=== PATIENT | male | born 1970 | race Hispanic/Latino ===

== ENCOUNTER 2019-02-20 10:35 | Observation (INO) | payer OTHER ==
--- NOTE | 2019-02-20 11:02 | RAD ---
EXAM: CHEST ONE VIEW HISTORY: Chest pain COMPARISON: None FINDINGS: The cardiac silhouette and pulmonary vasculature is within normal limits. The lungs are clear. The os seous structures are intact. IMPRESSION: No acute cardiopulmonary process.
[2019-02-20 11:03] LABS: #Basophils 0.1 thou/uL (0.0-0.2); #Eosinphils 0.1 thou/uL (0.0-0.7); #Lymphocytes 1.5 thou/uL (1.20-3.40); #Monocytes 0.4 thou/uL (0.11-0.59); #Neutrophils 4.8 thou/uL (1.40-6.50); %Basophils 0.9 % (0.0-1.0); %Eosinophils 0.8 % (0.0-10.0); %Lymphocytes 22.4 % (21.0-51.0); %Neutrophils 69.9 % (42.0-75.0); Hemoglobin 15.7 g/dL (14.0-18.0); Mean Corpuscular HGB CONC 34.7 g/dL (32.0-36.0); Mean Corpuscular Hemoglobin 30.8 pg (27.0-31.0); Mean Corpuscular Volume 88.8 fL (78.0-98.0); Mean Platelet Volume 10.4 fL (7.4-10.4); Platelet Count 123 thou/uL (130-400); Red Blood Cell (RBC) Count 5.09 mill/uL (4.70-6.10); White Blood Cell (WBC) Count 6.9 thou/uL (4.8-10.8)
[2019-02-20 11:21] LABS: ALT (SGPT) 58 U/L (8-55); AST (SGOT) 26 U/L (5-34); Albumin 4.5 g/dL (3.5-5.0); Alkaline Phosphatase 50 U/L (40-150); Anion Gap 12 mmol/L (10-20); BUN (Urea Nitrogen) 9 mg/dL (8.9-20.6); Bilirubin, Total 0.5 mg/dL (0.2-1.2); Calc. Creatinine Clearance 0 mL/min (70-130); Calcium 9.7 mg/dL (7.8-10.44); Carbon Dioxide 22 mmol/L (22-29); Chloride 108 mmol/L (98-107); Estimated GFR-MDRD Greater than 90; Globulin 2.7 g/dL (2.4-3.5); Glucose 102 mg/dL (70-105); Potassium 3.9 mmol/L (3.5-5.1); Protein, Total 7.2 g/dL (6.0-8.3); Sodium 138 mmol/L (136-145)
[2019-02-20] MEDS ORDERED: Acetaminophen 325 MG TAB PO PRN (14:25)
[2019-02-20] MEDS ORDERED: HYDROcodone/Acetaminophen 5/325 mg Tablet PO PRN (14:25)
[2019-02-20] MEDS ORDERED: Senokot S 8.6-50 MG TAB PO PRN (14:25)
[2019-02-20] MEDS ORDERED: hydrALAZINE 20 MG/ML VIAL SLOW IVP PRN (14:28)
[2019-02-20] MEDS ORDERED: cloNIDine 0.1 MG TAB PO PRN (14:28)
[2019-02-20 15:59] VITALS: BMI 30.6
--- NOTE | 2019-02-20 18:16 | HP ---
PRIMARY CARE PHYSICIAN: None. CHIEF COMPLAINT: Chest pain. HISTORY OF PRESENT ILLNESS: Mr. Giron is a 48-year-old man who is a prisoner. He reported to the emergency room today via EMS from [facility] after he was complaining of chest pain, he says really intermittent for the last 3 days. He went to the [facility] yesterday, was given some nitroglycerin which helped to improve. Reports that the chest pain became increasingly sharp, left-sided, at 5 a.m. this morning. He took 3 more of the nitroglycerin, and the pain was temporarily relieved. He states that it returned again at 9. EMS gave him 3 nitroglycerin and 324 mg of aspirin en route. The patient reports that his chest pain did improve once again. He denied any dizziness at the time, but does report he has some intermittent dizziness, especially when he takes his glasses off. Does report some shortness of breath. Denied any abdominal pain or any diaphoresis. Denied any cough. Does describe chest pain is more of a cramping in his left chest wall. Does have a history of hypertension, takes lisinopril and aspirin. He denied any history of OH or stents. Does report that his father had coronary artery disease as well. Troponins x2 are negative. EKG in the emergency room shows normal sinus rhythm, beats per minute 73, conduction. ST segments are normal. [place] is normal. The patient is subsequently admitted to the observation unit for further risk stratification. REVIEW OF SYSTEMS: The patient denies chills. Denies fever. Does report left-sided chest pain. Reports some shortness of breath. Denies any palpitations or diaphoresis. Denies any abdominal pain, constipation, or diarrhea. Denies any edema. Does report some dizziness. All other systems are reviewed and negative unless mentioned in the HPI. PAST MEDICAL HISTORY: Hypertension. PAST SURGICAL HISTORY: None. PSYCHIATRIC HISTORY: None. Drinks 2 drinks socially. Denies drug use. He is a former tobacco smoker. He quit less than 10 years ago. ALLERGIES: TO IBUPROFEN. CURRENT MEDICATIONS: Lisinopril 10 mg p.o. once a day and aspirin 81 mg p.o. once a day. PHYSICAL EXAMINATION: VITAL SIGNS: Blood pressure 126/88, pulse is 70, respirations 8, pO2 saturations are 98% on room air. CONSTITUTIONAL: The patient is in no distress, is currently in shackles. HEENT: Head is atraumatic and normocephalic. Eyes; eyelids are normal to inspection. Pupils are equal, round, and reactive to light. ENT, mouth exam is normal. Mucous membranes are moist. RESPIRATORY: Chest, breath sounds are clear. Chest movement is symmetrical. CARDIOVASCULAR: Regular heart rate and rhythm. Heart sounds are normal. BACK: Normal range of motion. No CVA tenderness. EXTREMITIES: Upper extremity, normal inspection, normal range of motion. Lower extremity, normal range of motion. Pedal pulses equal. No edema is noted. NEURO: The patient is oriented to person, place, and time. Speech is normal. SKIN: Warm, dry, normal in color. PSYCH: Has a normal affect. LABORATORY DATA: Unremarkable. Does have an ALT of 58, chloride of 108. Troponin x2 undetectable. Platelet count is 123. Otherwise, all labs are again unremarkable. Chest x-ray shows no acute cardiopulmonary process. ASSESSMENT AND PLAN: 1. Chest pain. The patient will be admitted to the observation unit. We will order a stress test. Check fasting lipids and TSH. Continue aspirin. 2. Hypertension. Restart home medications. Add p.r.n. medications as needed. 3. Gastrointestinal and deep venous thrombosis prophylaxis has been started. 4. Hospital course is dependent on clinical findings. Job ID: [id number]
[2019-02-20] MEDS: Famotidine 20 MG TAB PO SCH (19:36)
[2019-02-21 06:05] LABS: #Basophils 0.1 thou/uL (0.0-0.2); #Eosinphils 0.3 thou/uL (0.0-0.7); #Lymphocytes 2.5 thou/uL (1.20-3.40); #Monocytes 0.5 thou/uL (0.11-0.59); #Neutrophils 4.8 thou/uL (1.40-6.50); %Basophils 0.8 % (0.0-1.0); %Eosinophils 3.8 % (0.0-10.0); %Lymphocytes 30.7 % (21.0-51.0); %Neutrophils 58.7 % (42.0-75.0); Hemoglobin 15.5 g/dL (14.0-18.0); Mean Corpuscular HGB CONC 35.2 g/dL (32.0-36.0); Mean Corpuscular Hemoglobin 31.8 pg (27.0-31.0); Mean Corpuscular Volume 90.4 fL (78.0-98.0); Mean Platelet Volume 10.2 fL (7.4-10.4); Platelet Count 118 thou/uL (130-400); RBC Distribution Width 12.1 % (11.5-14.5); Red Blood Cell (RBC) Count 4.87 mill/uL (4.70-6.10); White Blood Cell (WBC) Count 8.1 thou/uL (4.8-10.8)
[2019-02-21 06:22] LABS: Anion Gap 14 mmol/L (10-20); BUN (Urea Nitrogen) 11 mg/dL (8.9-20.6); Calc. Creatinine Clearance 123 mL/min (70-130); Carbon Dioxide 22 mmol/L (22-29); Cardiac Risk 4.4 (Less than 4.5); Chloride 106 mmol/L (98-107); Cholesterol 168 mg/dl (< 200 Desired); Estimated GFR-MDRD 85; Glucose 85 mg/dL (70-105); HDL Cholesterol 38 mg/dL (>60 Neg Risk); LDL Cholesterol, Calculated 109 mg/dL; Potassium 4.1 mmol/L (3.5-5.1); Sodium 138 mmol/L (136-145); Triglycerides 104 mg/dL (Less than 150)
[2019-02-21] MEDS ORDERED: Enoxaparin Sodium 40 MG/0.4 ML SYRINGE SC SCH (09:00)
[2019-02-21] MEDS ORDERED: Aspirin 325 mg Enteric Coated Tablet PO SCH (09:00)
--- NOTE | 2019-02-21 12:44 | NM ---
EXAM: NM Cardiac Stress W EF WF PROVIDED CLINICAL HISTORY: Chest pain COMPARISON: None RADIOPHARMACEUTICAL: 30 millicuries technetium 99m labeled sestamibi IV stress 10 millicuries technetium 99m labeled sestamibi IV rest FINDINGS: There is normal, homogeneous distribution of radiotracer throughout the left ventricular myocardium. Gated data demonstrate normal myocardial wall motion and thickening with calculated LVEF 57%. Calculated TID is 0.98.. IMPRESSION: 1. No scintigraphic evidence for ischemia. 2. Calculated LVEF 57%.
[2019-02-21] MEDS: Famotidine 20 MG TAB PO SCH (12:57)
[2019-02-21] MEDS ORDERED: ADENOSINE 60 MG/20 ML VIAL ONE (13:12)
[2019-02-21 13:22] VITALS: BP 142/84; TEMP 97.4
== END 2019-02-21 18:23 ==
LOC: ERS 10:35 → 2SW 13:43
PROVIDERS: ADMIT Family Medicine; ATTEND Family Medicine
DX: R07.89 Other chest pain (principal); I10 Essential (primary) hypertension; Z87.891 Personal history of nicotine dependence; Z88.6 Allergy status to analgesic agent; Z79.899 Other long term (current) drug therapy
CPT/HCPCS: 36415; 71045; 78452; 80048; 80053; 80061; 84443; 84484; 85025; 85379; 93005; 93017; 96372; A9500; G0378; J0153; J1650